=== PATIENT | male | born 1965 | race Caucasian/White ===

== ENCOUNTER 2021-06-29 19:09 | Emergency (ER) | payer OTHER ==
[~2021-06-29] VITALS: Ht 182.9 cm; Wt 113.6 kg
[2021-06-29 20:45] VITALS: BP 115/65
== END 2021-06-29 20:46 | disposition home or self-care (01) ==
LOC: EMS 19:09
DX: S00.81XA Abrasion of other part of head, initial encounter (principal); W18.39XA Other fall on same level, initial encounter; Y93.89 Activity, other specified; Y92.89 Other specified places as the place of occurrence of the external cause; Y99.8 Other external cause status; F10.20 Alcohol dependence, uncomplicated
CPT/HCPCS: 70450; 82962; 99284

== ENCOUNTER 2023-12-05 17:39 | Inpatient (IN) | payer MEDICAID, OTHER ==
[~2023-12-05] VITALS: Ht 185.4 cm; Wt 113.8 kg
[2023-12-05 18:12] LABS: BASOPHILS % (AUTO) 0.6 % (0.0-2.0); EOSINOPHILS % (AUTO) 0.4 % (1.0-6.0); HEMATOCRIT 43.4 % (41-53); LYMPHOCYTES # (AUTO) 2.3 K/uL (1.0-4.8); LYMPHOCYTES % (AUTO) 40.4 % (22.0-44.0); MEAN CORPUSCULAR HEMOGLOBIN 28.5 pg (26.0-34.0); MEAN CORPUSCULAR HGB CONC 32.2 G/dL (31.0-37.0); MEAN CORPUSCULAR VOLUME 88 fL (80-100); MONOCYTES # (AUTO) 0.3 K/uL (0.1-1.0); NEUTROPHILS # (AUTO) 3.1 K/uL (1.8-7.7); NEUTROPHILS % (AUTO) 53.6 % (40.0-70.0); PLATELET COUNT (AUTO) 167 K/uL (150-450); RED BLOOD CELL COUNT(AUTO) 4.91 MIL/uL (4.50-5.90); RED CELL DISTRIBUTION WIDTH 23.9 % (11.5-14.5); WHITE BLOOD COUNT (AUTO) 5.8 K/uL (4.5-11.0)
[2023-12-05 18:21] LABS: ANION GAP 16 mmol/L (8-16); CALCIUM, TOTAL 8.6 mg/dL (8.8-10.5); CARBON DIOXIDE 23 mmol/L (22-29); CHLORIDE 103 mmol/L (98-107); CREATININE 1.04 mg/dL (0.60-1.30); GLOMERULAR FILTR. RATE CALC > 60 mL/min (>60); GLUCOSE,RANDOM 95 mg/dL (70-110); POTASSIUM 4.2 mmol/L (3.5-5.1); SODIUM SERUM 142 mmol/L (136-145); UREA NITROGEN, BLOOD 9 mg/dL (7-18)
[2023-12-05 18:27] LABS: ALANINE AMINOTRANSFERASE 38 U/L (12-78); ALBUMIN 3.5 g/dL (3.4-5.0); ALKALINE PHOSPHATASE 118 U/L (46-116); ASPARTATE AMINOTRANSFERASE 63 U/L (15-37); BILIRUBIN,TOTAL 0.4 mg/dL (0.1-1.0); TOTAL PROTEIN, SERUM 9.3 g/dL (6.4-8.2)
[2023-12-05 18:36] LABS: ALCOHOL, BLOOD (SERUM) 431 mg/dL (0-10)
[2023-12-05 19:13] LABS: RBC MORPHOLOGY COMMENT ABNORMAL RBC MORPH
[2023-12-05 23:29] LABS: COVID AG,FIA SOURCE NASAL SWAB
[2023-12-05 23:31] LABS: PH,URINE DRUG SCREEN 5.5 (5.0-8.0)
[2023-12-05 23:35] LABS: AMPHET/METH SCREEN,URINE NEGATIVE (NEGATIVE); BARBITURATE SCREEN, URINE NEGATIVE (NEGATIVE); BENZODIAZEPINES SCREEN,URINE NEGATIVE (NEGATIVE); CANNABINOID SCREEN,URINE NEGATIVE (NEGATIVE); COCAINE SCREEN,URINE NEGATIVE (NEGATIVE); METHADONE SCREEN, URINE NEGATIVE (NEGATIVE); OPIATE SCREEN,URINE NEGATIVE (NEGATIVE); PHENCYCLIDINE SCREEN,URINE NEGATIVE (NEGATIVE)
[2023-12-05 23:36] LABS: ALCOHOL, URINE DRUG SCREEN POSITIVE (NEGATIVE)
[2023-12-05 23:47] LABS: SARS-COV2 (COVID) ANTIGEN,FIA Negative (Negative)
[2023-12-06] VITALS (10 sets, daily range): BP systolic 121–169; BP diastolic 79–104; PULSE 90–119; RESP 17–18; TEMP 97.4–98; O2SAT 96–100
[2023-12-06] MEDS ORDERED: HALOPERIDOL 5 MG TABLET PO PRN (02:15)
[2023-12-06] MEDS ORDERED: ZOLPIDEM TARTRATE 10 MG TABLET PO PRN (02:15)
[2023-12-06 02:28] LABS: APPEARANCE,URINE CLEAR (CLEAR); BILIRUBIN,URINE NEGATIVE (NEGATIVE); COLOR,URINE YELLOW (YELLOW); GLUCOSE, URINE (UA) NEGATIVE (NEGATIVE); KETONES,URINE NEGATIVE (NEGATIVE); LEUKOCYTE ESTERASE ,URINE NEGATIVE (NEGATIVE); NITRATE,URINE NEGATIVE (NEGATIVE); OCCULT BLOOD,URINE NEGATIVE (NEGATIVE); PH,URINE 5.5 (5.0-8.0); PROTEIN,URINE TRACE mg/dL (NEGATIVE); SPECIFIC GRAVITIY, URINE 1.016 (1.003-1.030); UROBILINOGEN,URINE <=1.0 mg/dL (<=1.0)
[2023-12-06] MEDS ORDERED: ONDANSETRON HCL 4 MG TABLET PO PRN (05:30)
[2023-12-06] MEDS ORDERED: PETROLATUM,WHITE 28 GM JELLY TP PRN (05:30)
[2023-12-06] MEDS ORDERED: OMEPRAZOLE 20 MG CAPSULE PO PRN (05:30)
[2023-12-06] MEDS ORDERED: LOPERAMIDE HCL 2 MG CAPSULE PO PRN (05:30)
[2023-12-06] MEDS ORDERED: CloNIDine HCL 0.1 MG TABLET PO PRN (05:30)
[2023-12-06] MEDS ORDERED: BACITRACIN 28 GM OINTMENT TP PRN (05:30)
[2023-12-06] MEDS ORDERED: BENZOCAINE/MENTHOL LOZENGE PO PRN (05:30)
[2023-12-06] MEDS ORDERED: ALBUTEROL SULFATE HFA 90 MCG/PUFF 8 GM INHALER IH PRN (05:30)
[2023-12-06] MEDS ORDERED: MAG HYDROX/ALUMINUM HYD/SIMETH ES 30 ML SUSPENSION UDCUP PO PRN (05:30)
[2023-12-06] MEDS ORDERED: DOCUSATE SODIUM 100 MG CAPSULE PO PRN (05:30)
[2023-12-06] MEDS ORDERED: MAGNESIUM HYDROXIDE SUSPENSION 30 ML UDCUP PO PRN (05:30)
[2023-12-06] MEDS ORDERED: IBUPROFEN 600 MG TABLET PO PRN (05:30)
[2023-12-06] MEDS: APIXABAN 5 MG TABLET PO SCH (08:46)
[2023-12-06] MEDS: LORazepam 2 MG TABLET PO PRN (09:30)
[2023-12-06] MEDS: ChlordiazePOXIDE HCL 25 MG CAPSULE PO PRN (15:59)
[2023-12-07 02:00] VITALS: BP 142/90; PULSE 99; RESP 18; O2SAT 98
[2023-12-07 06:01] VITALS: RESP 18
[2023-12-07 06:02] VITALS: RESP 18
[2023-12-07] MEDS ORDERED: ChlordiazePOXIDE HCL 25 MG CAPSULE PO PRN (07:00)
[2023-12-07] MEDS: ChlordiazePOXIDE HCL 25 MG CAPSULE PO SCH (08:18)
[2023-12-07] MEDS: DIVALPROEX SODIUM 500 MG DR TABLET PO SCH (11:08)
[2023-12-07] MEDS: LITHIUM CARBONATE 300 MG CAPSULE PO SCH (11:08)
[2023-12-07 13:21] VITALS: BP 133/85; PULSE 88; RESP 18; TEMP 97.6; O2SAT 100
[2023-12-07 21:17] VITALS: BP 129/89; PULSE 85; RESP 18; TEMP 97.7; O2SAT 98
[2023-12-08 08:45] VITALS: BP 116/76; PULSE 97; RESP 18; TEMP 97.5; O2SAT 98
[2023-12-08 11:18] VITALS: BP 116/76; PULSE 97; RESP 18; TEMP 97.5; O2SAT 98
[2023-12-08 21:41] VITALS: BP 119/77; PULSE 84; RESP 18; TEMP 96.6; O2SAT 97
[2023-12-09] MEDS ORDERED: ChlordiazePOXIDE HCL 10 MG CAPSULE PO PRN (07:00)
[2023-12-09] MEDS: ChlordiazePOXIDE HCL 10 MG CAPSULE PO SCH (09:26)
[2023-12-09 09:55] VITALS: BP 104/63; PULSE 63; RESP 18; TEMP 97.6; O2SAT 98
[2023-12-09 09:59] VITALS: BP 104/63; PULSE 63; RESP 18; TEMP 97.6; O2SAT 98
[2023-12-09 21:02] VITALS: BP 132/82; PULSE 86; RESP 18; TEMP 98.3; O2SAT 98
[2023-12-09 21:08] VITALS: BP 132/82; PULSE 86; RESP 18; TEMP 98; O2SAT 99
[2023-12-10] MEDS: ChlordiazePOXIDE HCL 10 MG CAPSULE PO PRN (09:09)
[2023-12-10 10:24] VITALS: BP 120/75; PULSE 81; RESP 18; TEMP 97.9; O2SAT 98
[2023-12-10] MEDS: ACETAMINOPHEN 325 MG TABLET PO PRN (10:24)
[2023-12-10 10:50] VITALS: BP 120/75; PULSE 81; RESP 18; TEMP 97.9; O2SAT 98
[2023-12-10 11:24] VITALS: BP 122/76; PULSE 78; RESP 18; TEMP 97.6
[2023-12-10 20:24] VITALS: BP 105/77; PULSE 86; RESP 18; TEMP 98.3; O2SAT 98
[2023-12-10 20:30] VITALS: BP 105/77; PULSE 86; RESP 18; TEMP 98.3; O2SAT 86
[2023-12-11 08:00] VITALS: BP 132/89; PULSE 77; RESP 18; TEMP 97.6; O2SAT 100
[2023-12-11 12:01] LABS: LITHIUM 0.49 mmol/L (0.60-1.20)
[2023-12-11 15:43] VITALS: BP 132/89; PULSE 77; RESP 18; TEMP 97.6; O2SAT 100
[2023-12-11] MEDS ORDERED: DIVA-112 PO (16:05)
[2023-12-11] MEDS ORDERED: LITH300C3 PO (16:06)
[2023-12-11] MEDS ORDERED: APIX5TAB PO (16:07)
== END 2023-12-11 18:30 | disposition home or self-care (01) | DRG 753 ==
LOC: EMS 17:39 → 3EI 12-06 04:29
PROVIDERS: ADMIT Psychiatry & Neurology Psychiatry; ATTEND Psychiatry & Neurology Psychiatry
DX: F31.9 Bipolar disorder, unspecified (principal); F25.1 Schizoaffective disorder, depressive type; R45.851 Suicidal ideations; K70.30 Alcoholic cirrhosis of liver without ascites; F10.129 Alcohol abuse with intoxication, unspecified; K21.9 Gastro-esophageal reflux disease without esophagitis; Z20.822 Contact with and (suspected) exposure to COVID-19; Y90.8 Blood alcohol level of 240 mg/100 ml or more; K59.00 Constipation, unspecified; F41.9 Anxiety disorder, unspecified; F10.139 Alcohol abuse with withdrawal, unspecified; F15.10 Other stimulant abuse, uncomplicated; J44.9 Chronic obstructive pulmonary disease, unspecified; Z79.01 Long term (current) use of anticoagulants; Z86.711 Personal history of pulmonary embolism; Z86.718 Personal history of other venous thrombosis and embolism; Z86.73 Personal history of transient ischemic attack (TIA), and cerebral infarction without residual deficits
CPT/HCPCS: 80053; 80164; 80178; 80307; 81003; 85025; 99285; G0480

== ENCOUNTER 2024-04-28 16:11 | Inpatient (IN) | payer MEDICAID, OTHER ==
[~2024-04-28] VITALS: Ht 185.4 cm; Wt 118.1 kg
[~2024-04-28 16:11] MED LIST: APIX5TAB PO; DIVA-112 PO; LITH300C3 PO
[2024-04-28] MEDS ORDERED: LOSA-382 PO (17:48)
[2024-04-28 18:19] LABS: BASOPHILS % (AUTO) 0.6 % (0.0-2.0); EOSINOPHILS % (AUTO) 0.1 % (1.0-6.0); HEMATOCRIT 36.4 % (41-53); HEMOGLOBIN 11.5 g/dL (13.5-17.5); LYMPHOCYTES # (AUTO) 1.7 K/uL (1.0-4.8); LYMPHOCYTES % (AUTO) 16.6 % (22.0-44.0); MEAN CORPUSCULAR HEMOGLOBIN 32.1 pg (26.0-34.0); MEAN CORPUSCULAR HGB CONC 31.5 G/dL (31.0-37.0); MEAN CORPUSCULAR VOLUME 102 fL (80-100); MONOCYTES # (AUTO) 0.4 K/uL (0.1-1.0); MONOCYTES % (AUTO) 4.3 % (2.0-9.0); NEUTROPHILS # (AUTO) 8.2 K/uL (1.8-7.7); NEUTROPHILS % (AUTO) 78.4 % (40.0-70.0); PLATELET COUNT (AUTO) 254 K/uL (150-450); RED BLOOD CELL COUNT(AUTO) 3.57 MIL/uL (4.50-5.90); RED CELL DISTRIBUTION WIDTH 19.3 % (11.5-14.5); WHITE BLOOD COUNT (AUTO) 10.5 K/uL (4.5-11.0)
[2024-04-28 18:28] LABS: ANION GAP 23 mmol/L (8-16); CALCIUM, TOTAL 8.6 mg/dL (8.8-10.5); CARBON DIOXIDE 14 mmol/L (22-29); CHLORIDE 99 mmol/L (98-107); CREATININE 2.15 mg/dL (0.60-1.30); GLOMERULAR FILTR. RATE CALC 32 mL/min (>60); GLUCOSE,RANDOM 60 mg/dL (70-110); POTASSIUM 3.9 mmol/L (3.5-5.1); SODIUM SERUM 136 mmol/L (136-145); UREA NITROGEN, BLOOD 27 mg/dL (7-18)
[2024-04-28 18:33] LABS: RBC MORPHOLOGY COMMENT ABNORMAL RBC MORPH
[2024-04-28 18:34] LABS: ALANINE AMINOTRANSFERASE 33 U/L (12-78); ALBUMIN 2.5 g/dL (3.4-5.0); ALKALINE PHOSPHATASE 107 U/L (46-116); ASPARTATE AMINOTRANSFERASE 76 U/L (15-37); BILIRUBIN,TOTAL 1.2 mg/dL (0.1-1.0)
[2024-04-28 18:40] LABS: ALCOHOL, BLOOD (SERUM) < 3 mg/dL (0-10)
[2024-04-28 19:48] LABS: PH,URINE DRUG SCREEN 5.5 (5.0-8.0)
[2024-04-28 19:56] LABS: ALCOHOL, URINE DRUG SCREEN NEGATIVE (NEGATIVE); AMPHET/METH SCREEN,URINE POSITIVE (NEGATIVE); BARBITURATE SCREEN, URINE NEGATIVE (NEGATIVE); BENZODIAZEPINES SCREEN,URINE NEGATIVE (NEGATIVE); CANNABINOID SCREEN,URINE NEGATIVE (NEGATIVE); COCAINE SCREEN,URINE NEGATIVE (NEGATIVE); METHADONE SCREEN, URINE NEGATIVE (NEGATIVE); OPIATE SCREEN,URINE NEGATIVE (NEGATIVE); PHENCYCLIDINE SCREEN,URINE NEGATIVE (NEGATIVE)
[2024-04-28 21:24] LABS: COVID AG,FIA SOURCE NASAL SWAB
[2024-04-28 21:40] LABS: LACTIC ACID 0.7 mmol/L (0.4-2.0)
[2024-04-28] MEDS: SODIUM CHLORIDE 0.9% 1,000 ML IV ONE (21:55)
[2024-04-28 22:17] LABS: SARS-COV2 (COVID) ANTIGEN,FIA Negative (Negative)
[2024-04-28] MEDS ORDERED: ACETAMINOPHEN/CODEINE 300-30 MG TABLET PO PRN (23:00)
[2024-04-28] MEDS ORDERED: MAGNESIUM HYDROXIDE SUSPENSION 30 ML UDCUP PO PRN (23:00)
[2024-04-28] MEDS ORDERED: 1: MAGNESIUM SULFATE 2 GM, MVI, ADULT NO.1 WITH VIT K 10 ML, THIAMINE 100 MG, FOLIC ACID IV SCH (23:00)
[2024-04-28] MEDS ORDERED: LORazepam 2 MG/ML VIAL IVP PRN (23:00)
[2024-04-28] MEDS ORDERED: BISACODYL 10 MG RECTAL RECTAL SUPPOSITORY PR PRN (23:00)
[2024-04-28 23:40] LABS: APPEARANCE,URINE HAZY (CLEAR); BILIRUBIN,URINE SMALL (NEGATIVE); COLOR,URINE YELLOW (YELLOW); GLUCOSE, URINE (UA) NEGATIVE (NEGATIVE); KETONES,URINE 40-60 mg/dL (NEGATIVE); LEUKOCYTE ESTERASE ,URINE MODERATE (NEGATIVE); NITRATE,URINE NEGATIVE (NEGATIVE); OCCULT BLOOD,URINE MODERATE (NEGATIVE); PH,URINE 5.5 (5.0-8.0); PROTEIN,URINE 30-70 mg/dL (NEGATIVE); SPECIFIC GRAVITIY, URINE 1.023 (1.003-1.030)
[2024-04-28] MEDS: 1: MAGNESIUM SULFATE 2 GM, MVI, ADULT NO.1 WITH VIT K 10 ML, THIAMINE 100 MG, FOLIC ACID IV SCH (23:43)
[2024-04-28 23:52] LABS: BACTERIA,URINE Moderate /HPF (None Seen); SQUAMOUS EPITHELIAL CELL,UR Rare /LPF (None Seen); WBC,URINE 26-50 /HPF (0-5)
[2024-04-29] VITALS (8 sets, daily range): BP systolic 117–132; BP diastolic 70–81; PULSE 67–99; RESP 17–20; TEMP 97.2–98; O2SAT 97–99
[2024-04-29] MEDS ORDERED: ChlordiazePOXIDE HCL 25 MG CAPSULE PO SCH
[2024-04-29] MEDS: CefTRIAXone 1 GM/DEXTROSE 50 ML IV ONE (00:52)
[2024-04-29] MEDS: LORazepam 2 MG/ML VIAL IVP PRN (05:06)
[2024-04-29] MEDS: ChlordiazePOXIDE HCL 25 MG CAPSULE PO SCH (07:23)
[2024-04-29] MEDS ORDERED: OLANZapine 5 MG RAPDIS TABLET PO PRN (10:15)
[2024-04-29] MEDS ORDERED: ChlordiazePOXIDE HCL 25 MG CAPSULE PO PRN (10:15)
[2024-04-29] MEDS ORDERED: HydrOXYzine PAMOATE 50 MG CAPSULE PO PRN (10:15)
[2024-04-29] MEDS ORDERED: LOPERAMIDE HCL 2 MG CAPSULE PO PRN (10:15)
[2024-04-29] MEDS ORDERED: GuaiFENesin/D-METHORPHAN [SUGAR-FREE] 200-20MG/10 ML SYRUP UDCUP PO PRN (10:15)
[2024-04-29] MEDS ORDERED: SODIUM CHLORIDE 0.9% 1,000 ML ONE (12:57)
[2024-04-29 13:15] LABS: GLUCOMETER DEV NAME(LOC) 5S.1C; GLUCOSE,POINT OF CARE 68 MG/DL (70-110)
[2024-04-29] MEDS: LOSARTAN POTASSIUM 50 MG TABLET PO SCH (13:24)
[2024-04-29] MEDS: CYANOCOBALAMIN 1,000 MCG/ML VIAL IM ONE (13:25)
[2024-04-29] MEDS: MORPHINE SULFATE 2 MG/ML SYRINGE IVP PRN (13:40)
[2024-04-29] MEDS: DIVALPROEX SODIUM 500 MG ER TABLET PO SCH (15:57)
[2024-04-29] MEDS: RINGERS SOLUTION,LACTATED 1,000 ML IV ONE (17:24)
[2024-04-29] MEDS: THIAMINE 100 MG TABLET PO SCH (21:41)
[2024-04-29] MEDS: OLANZapine 5 MG RAPDIS TABLET PO SCH (21:42)
[2024-04-29 21:58] LABS: CREATININE,URINE RANDOM 110.6 mg/dL (30.0-125.0)
[2024-04-30] VITALS (7 sets, daily range): BP systolic 119–146; BP diastolic 67–92; PULSE 64–84; RESP 17–20; TEMP 97.4–98; O2SAT 95–100
[2024-04-30] MEDS ORDERED: SODIUM CHLORIDE 0.9% 250 ML IV ONE (00:43)
[2024-04-30] MEDS: CefTRIAXone 1 GM/DEXTROSE 50 ML IV SCH (00:44)
[2024-04-30 06:59] LABS: HEMOGLOBIN A1C 4.7 % (3.8-5.6)
[2024-04-30] MEDS ORDERED: ChlordiazePOXIDE HCL 25 MG CAPSULE PO PRN (07:00)
[2024-04-30 07:02] LABS: ANION GAP 11 mmol/L (8-16); CALCIUM, TOTAL 8.1 mg/dL (8.8-10.5); CARBON DIOXIDE 22 mmol/L (22-29); CHLORIDE 106 mmol/L (98-107); CREATININE 0.95 mg/dL (0.60-1.30); GLOMERULAR FILTR. RATE CALC > 60 mL/min (>60); GLUCOSE,RANDOM 73 mg/dL (70-110); PHOSPHORUS 2.9 mg/dL (2.5-4.9); POTASSIUM 3.3 mmol/L (3.5-5.1); SODIUM SERUM 138 mmol/L (136-145); UREA NITROGEN, BLOOD 15 mg/dL (7-18)
[2024-04-30] MEDS: MULTIVITAMINS WITH MINERALS, THERAPEUTIC TABLET PO SCH (08:18)
[2024-04-30] MEDS: ChlordiazePOXIDE HCL 25 MG CAPSULE PO SCH (08:18)
[2024-04-30] MEDS: FLUoxetine HCL 10 MG CAPSULE PO SCH (08:18)
[2024-04-30] MEDS: FOLIC ACID 1 MG TABLET PO SCH (08:18)
[2024-04-30] MEDS ORDERED: SODIUM CHLORIDE 0.9% 1,000 ML ONE (15:21)
[2024-04-30] MEDS: POTASSIUM CHLORIDE 20 MEQ ER TABLET PO ONE (15:26)
[2024-04-30] MEDS ORDERED: DIVALPROEX SODIUM 500 MG DR TABLET PO SCH (21:00)
[2024-04-30] MEDS: APIXABAN 5 MG TABLET PO SCH (22:21)
[2024-05-01 03:18] VITALS: BP 119/77; PULSE 73; RESP 18; TEMP 97.7; O2SAT 97
[2024-05-01 07:48] VITALS: BP 122/79; PULSE 75; RESP 18; TEMP 98.1; O2SAT 97
[2024-05-01 12:00] VITALS: BP_SYST 128; BP_SYST 18; BP_DIAS 73; PULSE 70; RESP 19; TEMP 98.3; O2SAT 98
[2024-05-01 13:07] LABS: HEMATOCRIT 34.6 % (41-53); HEMOGLOBIN 11.2 g/dL (13.5-17.5); MEAN CORPUSCULAR HEMOGLOBIN 32.5 pg (26.0-34.0); MEAN CORPUSCULAR HGB CONC 32.4 G/dL (31.0-37.0); MEAN CORPUSCULAR VOLUME 100 fL (80-100); PLATELET COUNT (AUTO) 206 K/uL (150-450); RED BLOOD CELL COUNT(AUTO) 3.45 MIL/uL (4.50-5.90); RED CELL DISTRIBUTION WIDTH 19.7 % (11.5-14.5); WHITE BLOOD COUNT (AUTO) 2.9 K/uL (4.5-11.0)
[2024-05-01 14:04] LABS: BAND NEUTROPHILS % (MANUAL) 2 % (0-5); EOSINOPHILS % (MANUAL) 1 % (1-6); LYMPHOCYTES % (MANUAL) 35 % (22-44); MONOCYTES % (MANUAL) 9 % (2-9); RBC MORPHOLOGY COMMENT ABNORMAL RBC MORPH; SEGMENTED NEUTROPHILS % 53 % (40-70); TOTAL CELLS COUNTED 100
[2024-05-01 15:35] VITALS: BP 132/69; PULSE 73; RESP 18; TEMP 97.9; O2SAT 98
[2024-05-01 20:00] VITALS: BP 128/90; PULSE 72; RESP 18; TEMP 97.4; O2SAT 96
[2024-05-02] VITALS: BP 119/87; PULSE 102; RESP 18; TEMP 97.6; O2SAT 97
[2024-05-02] MEDS ORDERED: SODIUM CHLORIDE 0.9% 250 ML IV ONE (01:07)
[2024-05-02 04:00] VITALS: BP 140/89; PULSE 64; RESP 18; TEMP 97.4; O2SAT 100
[2024-05-02 05:09] LABS: ALBUMIN URINE (ELP) Note: %; TOTAL PROTEIN URINE 17.8 mg/dL (Not Estab.)
[2024-05-02] MEDS ORDERED: ChlordiazePOXIDE HCL 10 MG CAPSULE PO PRN (07:00)
[2024-05-02] MEDS: OxyCODONE HCL/ACETAMINOPHEN 5-325 MG TABLET PO PRN ×2 (08:08→14:05)
[2024-05-02] MEDS: ChlordiazePOXIDE HCL 10 MG CAPSULE PO SCH (08:46)
[2024-05-02 10:20] LABS: BASOPHILS % (AUTO) 1.4 % (0.0-2.0); EOSINOPHILS % (AUTO) 1.3 % (1.0-6.0); HEMATOCRIT 40.4 % (41-53); LYMPHOCYTES % (AUTO) 29.5 % (22.0-44.0); MEAN CORPUSCULAR HEMOGLOBIN 32.8 pg (26.0-34.0); MEAN CORPUSCULAR HGB CONC 32.2 G/dL (31.0-37.0); MEAN CORPUSCULAR VOLUME 102 fL (80-100); MONOCYTES # (AUTO) 0.2 K/uL (0.1-1.0); MONOCYTES % (AUTO) 6.3 % (2.0-9.0); NEUTROPHILS % (AUTO) 61.5 % (40.0-70.0); PLATELET COUNT (AUTO) 211 K/uL (150-450); RED BLOOD CELL COUNT(AUTO) 3.96 MIL/uL (4.50-5.90); RED CELL DISTRIBUTION WIDTH 19.2 % (11.5-14.5); WHITE BLOOD COUNT (AUTO) 3.3 K/uL (4.5-11.0)
[2024-05-02 10:21] LABS: RBC MORPHOLOGY COMMENT ABNORMAL RBC MORPH
[2024-05-02 11:42] LABS: ANION GAP 11 mmol/L (8-16); CALCIUM, TOTAL 8.6 mg/dL (8.8-10.5); CARBON DIOXIDE 25 mmol/L (22-29); CHLORIDE 111 mmol/L (98-107); CREATININE 0.95 mg/dL (0.60-1.30); GLOMERULAR FILTR. RATE CALC > 60 mL/min (>60); GLUCOSE,RANDOM 73 mg/dL (70-110); POTASSIUM 3.4 mmol/L (3.5-5.1); SODIUM SERUM 147 mmol/L (136-145); UREA NITROGEN, BLOOD 8 mg/dL (7-18)
[2024-05-02] MEDS: D5 IV ONE (12:30)
[2024-05-02] MEDS: [UNRECOGNIZED DRUG - OTHER] IV ONE (12:30)
[2024-05-02] MEDS: POTASSIUM CHL IV ONE (12:30)
[2024-05-02 12:57] VITALS: BP 126/79; PULSE 65; RESP 18; TEMP 98; O2SAT 100
[2024-05-02] MEDS: HYDROmorphone HCL 2 MG/ML SYRINGE IVP PRN (13:22)
[2024-05-02 15:10] VITALS: BP 136/74; PULSE 79; RESP 20; TEMP 97.9; O2SAT 98
[2024-05-02] MEDS: PROMETHAZINE HCL/DEXTROMETH 6.25-15MG/5ML SOLUTION ORAL.SYG PO PRN (18:54)
[2024-05-02 20:00] VITALS: BP 116/76; PULSE 99; RESP 18; TEMP 97.5; O2SAT 98
[2024-05-02] MEDS: ACETAMINOPHEN 325 MG TABLET PO PRN (20:52)
[2024-05-03] VITALS (7 sets, daily range): BP systolic 125–131; BP diastolic 70–92; PULSE 58–89; RESP 17–18; TEMP 97.4–98.1; O2SAT 95–99
[2024-05-03] MEDS ORDERED: ChlordiazePOXIDE HCL 10 MG CAPSULE PO PRN (07:00)
[2024-05-03 07:54] LABS: BASOPHILS % (AUTO) 0.7 % (0.0-2.0); EOSINOPHILS % (AUTO) 1.6 % (1.0-6.0); HEMATOCRIT 34.2 % (41-53); HEMOGLOBIN 11.3 g/dL (13.5-17.5); LYMPHOCYTES # (AUTO) 1.2 K/uL (1.0-4.8); LYMPHOCYTES % (AUTO) 46.8 % (22.0-44.0); MEAN CORPUSCULAR HEMOGLOBIN 33.1 pg (26.0-34.0); MEAN CORPUSCULAR HGB CONC 33.1 G/dL (31.0-37.0); MEAN CORPUSCULAR VOLUME 100 fL (80-100); MONOCYTES # (AUTO) 0.2 K/uL (0.1-1.0); MONOCYTES % (AUTO) 8.4 % (2.0-9.0); NEUTROPHILS # (AUTO) 1.1 K/uL (1.8-7.7); NEUTROPHILS % (AUTO) 42.5 % (40.0-70.0); PLATELET COUNT (AUTO) 164 K/uL (150-450); RED BLOOD CELL COUNT(AUTO) 3.43 MIL/uL (4.50-5.90); RED CELL DISTRIBUTION WIDTH 19.8 % (11.5-14.5); WHITE BLOOD COUNT (AUTO) 2.7 K/uL (4.5-11.0)
[2024-05-03 07:58] LABS: ANION GAP 11 mmol/L (8-16); CALCIUM, TOTAL 8.3 mg/dL (8.8-10.5); CARBON DIOXIDE 24 mmol/L (22-29); CHLORIDE 110 mmol/L (98-107); CREATININE 0.76 mg/dL (0.60-1.30); GLOMERULAR FILTR. RATE CALC > 60 mL/min (>60); GLUCOSE,RANDOM 83 mg/dL (70-110); POTASSIUM 3.1 mmol/L (3.5-5.1); SODIUM SERUM 145 mmol/L (136-145); UREA NITROGEN, BLOOD 8 mg/dL (7-18)
[2024-05-03 08:36] LABS: RBC MORPHOLOGY COMMENT NORMAL RBC MORPH
[2024-05-03] MEDS ORDERED: POTASSIUM CHL 10 MEQ/WATER 50 ML IV PRN (19:00)
[2024-05-03] MEDS: POTASSIUM CHLORIDE 20 MEQ ER TABLET PO PRN (19:01)
[2024-05-04 04:13] VITALS: BP 129/97; PULSE 99; RESP 18; TEMP 97.5; O2SAT 100
[2024-05-04 08:08] VITALS: BP 130/92; PULSE 92; RESP 18; TEMP 97.9; O2SAT 99
[2024-05-04 20:00] VITALS: BP 118/75; PULSE 79; RESP 18; TEMP 97.7; O2SAT 98
[2024-05-05 05:30] VITALS: BP 142/76; PULSE 62; RESP 18; TEMP 97.8; O2SAT 100
[2024-05-05 08:35] VITALS: BP 138/77; PULSE 68; RESP 19; TEMP 98.4; O2SAT 100
[2024-05-06 04:17] VITALS: BP 117/76; PULSE 68; RESP 20; TEMP 97.7; O2SAT 92
[2024-05-06 08:15] VITALS: BP 145/76; PULSE 73; RESP 20; TEMP 97.7; O2SAT 99
[2024-05-06 16:00] VITALS: BP 119/74; PULSE 61; RESP 18; TEMP 97.5; O2SAT 100
[2024-05-06 19:54] VITALS: BP 109/63; PULSE 68; RESP 18; TEMP 97.7; O2SAT 99
[2024-05-07 04:35] VITALS: BP 109/76; PULSE 93; RESP 18; TEMP 97.7; O2SAT 99
[2024-05-07 09:47] VITALS: BP 133/85; PULSE 63; RESP 18; TEMP 98; O2SAT 98
[2024-05-07 15:48] VITALS: BP 126/83; PULSE 62; RESP 20; TEMP 97.5; O2SAT 99
[2024-05-07 20:20] VITALS: BP 125/93; PULSE 89; RESP 18; TEMP 98.2; O2SAT 98
== END 2024-05-07 20:54 | DRG 469 ==
LOC: EMS 16:11 → EDH 23:21 → 5S 04-29 08:05 → 4E 05-03 21:35
PROVIDERS: ADMIT Hospitalist; ATTEND Hospitalist
DX: N17.0 Acute kidney failure with tubular necrosis (principal); G92.9 Unspecified toxic encephalopathy; E87.20 Acidosis, unspecified; F22 Delusional disorders; N39.0 Urinary tract infection, site not specified; F20.9 Schizophrenia, unspecified; I10 Essential (primary) hypertension; F32.A Depression, unspecified; F10.139 Alcohol abuse with withdrawal, unspecified; Z20.822 Contact with and (suspected) exposure to COVID-19; F15.10 Other stimulant abuse, uncomplicated; Y90.0 Blood alcohol level of less than 20 mg/100 ml; Z79.01 Long term (current) use of anticoagulants; Z79.899 Other long term (current) drug therapy; Z86.711 Personal history of pulmonary embolism
CPT/HCPCS: 73521; 76770; 80048; 80076; 80178; 80307; 81001; 82570; 82962; 83036; 83605; 83735; 84100; 84132; 84156; 84166; 84300; 85025; 87086; 87186; 93005; 97116; 97162; 97166; 97530; 97535; 99285; G0378; G0480; J0696; J1170; J2060; J2270; J3411; J3420; J3475; J3480; J3490; J7030; J7050